=== PATIENT | male | born 1995 | race African-American/Black ===

== ENCOUNTER 2023-12-27 11:46 | Emergency (ER) | payer OTHER ==
[2023-12-27] MEDS ORDERED: Acetaminophen 325 MG TAB ONE (12:34)
[2023-12-27] MEDS ORDERED: HYDROcodone/Acetaminophen 5/325 mg Tablet ONE (12:35)
[2023-12-27] MEDS ORDERED: Boostrix 0.5 ML (Tdap) VIAL (>/=7 yrs of age) ONE (12:35)
== END 2023-12-27 13:25 ==
LOC: EEVIPCON 11:46 → ERS 11:46
DX: S02.5XXA Fracture of tooth (traumatic), initial encounter for closed fracture (principal); M25.561 Pain in right knee; Y04.0XXA Assault by unarmed brawl or fight, initial encounter
CPT/HCPCS: 70450; 70486; 90471; 90715